=== PATIENT | female | born 1990 ===

== ENCOUNTER 2018-08-14 20:38 | Emergency (ER) | payer SELFPAY ==
[2018-08-14] MEDS ORDERED: Sodium Chloride 0.9% 1,000 ML IV STA (22:21)
[2018-08-14 23:01] LABS: BASO # 0.3 K/uL (0.0-0.2); BASO % 1.5 % (0.0-2.0); EOS % 0.2 % (0.0-4.0); HEMOGLOBIN 14.3 g/dL (12.0-16.0); LYMPH # 3.1 K/uL (1.0-4.3); LYMPH % 15.9 % (20.0-40.0); MEAN CELL VOLUME 92.2 fl (81.0-99.0); MEAN CORPUSCULAR HEMOGLOBIN 31.4 pg (27.0-31.0); MEAN CORPUSCULAR HGB CONC 34.1 g/dL (33.0-37.0); MEAN PLATELET VOLUME 7.4 fl (7.2-11.7); MONO # 1.1 K/uL (0.0-0.8); MONO % 5.8 % (0.0-10.0); NEUT # 14.7 K/uL (1.8-7.0); NEUT % 76.6 % (50.0-75.0); RBC 4.55 Mil/uL (3.80-5.20); RED CELL DISTRIBUTION WIDTH 13.5 % (11.5-14.5); WHITE BLOOD COUNT 19.2 K/uL (4.8-10.8)
[2018-08-14 23:09] LABS: SQUAMOUS EPITHIAL 6 /hpf (0-5); URINE BILIRUBIN NEGATIVE (NEGATIVE); URINE BLOOD SMALL (NEGATIVE); URINE CLARITY SLIGHTY-CLOUDY (Clear); URINE COLOR YELLOW (YELLOW); URINE GLUCOSE (UA) NEG (Normal); URINE LEUKOCYTE ESTERASE TRACE Leu/uL (Negative); URINE PROTEIN NEGATIVE (NEGATIVE); URINE UROBILINOGEN 0.2-1.0 mg/dL (0.2-1.0)
[2018-08-14 23:12] LABS: ALB/GLOB RATIO 1.1 (1.0-2.1); ALBUMIN 4.4 g/dL (3.5-5.0); ALT/SGPT 49 U/L (9-52); AST/SGOT 30 U/L (14-36); BLOOD UREA NITROGEN 8 mg/dl (7-17); CALCIUM 9.7 mg/dL (8.4-10.2); GFR NON-AFRICAN AMERICAN > 60; LIPASE 42 U/L (23-300)
--- NOTE | 2018-08-15 01:02 | ED PDOC ---
HPI: Abdomen Time Seen by Provider: 08/14/18 22:12 Chief Complaint (Nursing): Abdominal Pain Chief Complaint (Provider): Abdominal Pain History Per: Patient History/Exam Limitations: no limitations Onset/Duration Of Symptoms: Days (x2) Location Of Pain/Discomfort: LLQ Associated Symptoms: Nausea. denies: Fever, Vomiting, Urinary Symptoms Additional Complaint(s): 37 years old female presents to ER for evaluation of left lower quadrant abdomi nal pain associated with nausea for the past 2 days. Patient reports having pain with urination and bowel movement. She reports she has PCOS and used to take metformin but stopped. Patient denies fever, vomiting, melena, bloody stools or previous abdominal surgery. PMD: non provided Past Medical History Reviewed: Historical Data, Nursing Documentation, Vital Signs Vital Signs: Last Vital Signs Temp 99.4 F 08/14/18 22:03 Pulse 99 H 08/14/18 22:03 Resp 18 08/14/18 22:03 BP 149/84 08/14/18 22:03 Pulse Ox 100 08/14/18 22:03 - Medical History Other PMH: PCOS - Surgical History Surgical History: No Surg Hx - Family History Family History: States: Unknown Family Hx - Home Medications Home Medications: Ambulatory Orders Medication Instructions Recorded Nitrofurantoin Macrocrystals 100 mg PO BID #13 cap 08/15/18 [Macrobid] RX: Naproxen [Naprosyn] 500 mg PO BID PRN #10 tab 08/15/18 - Allergies Allergies/Adverse Reactions: Allergies Allergy/AdvReac Type Severity Reaction Status Date / Time No Known Allergies Allergy Verified 08/14/18 22:03 Review of Systems ROS Statement: Except As Marked, All Systems Reviewed And Found Negative Constitutional: Negative for: Fever Gastrointestinal: Positive for: Nausea, Abdominal Pain (LLQ). Negative for: Vomiting, Melena, Hematochezia Physical Exam - Reviewed Nursing Documentation Reviewed: Yes Vital Signs Reviewed: Yes - Physical Exam Appears: Positive for: Non-toxic, No Acute Distress Head Exam: Positive for: ATRAUMATIC, NORMOCEPHALIC Skin: Positive for: Normal Color, Warm, Dry Neck: Positive for: Normal, Painless ROM, Supple Cardiovascular/Chest: Positive for: Regular Rate, Rhythm. Negative for: Murmur Respiratory: Positive for: Normal Breath Sounds. Negative for: Wheezing Gastrointestinal/Abdominal: Positive for: Tenderness (Left sided pelvic) Back: Positive for: Normal Inspection. Negative for: L CVA Tenderness, R CVA Tenderness Extremity: Positive for: Normal ROM. Negative for: Tenderness, Deformity Neurologic/Psych: Positive for: Alert, Oriented (x3) - Laboratory Results Result Diagrams: 08/14/18 22:56 08/14/18 22:56 - ECG O2 Sat by Pulse Oximetry: 100 (RA) Pulse Ox Interpretation: Normal Medical Decision Making Medical Decision Making: Time: 2219 Initial Plan: --VBG Shock --CT Abdomen & Pevis --CMP --Lipase --CBC --NaCl 1,000 ml IV --Toradol 30 mg IVP --Zofran 4 mg IV --Blood culture --Urinalysis --Urine culture --Transvaginal US 1141 Transvaginal US Findings: The uterus measures 7.2 x 2.4 x 4.0 cm. The endometrium measures 0.7 cm in thickness. The right ovary measures 4.1 x 1.9 x 3.1 cm.. Left ovary measures 4.3 x 2.0 with 3.9 cm. Arterial Doppler signals were identified originating from both ovaries. There is no free pelvic fluid demonstrated. Impression: Unremarkable study. 0000 On re-eval, pt. reports good relief of pain. WBC elevated. CT abd/pelvis w/ IV contrast, VBG, blood culture, urine culture ordered. 0249 CT abdomen/pelvis findings: COMMENTS: Uncomplicated colonic diverticulosis. Mild bilateral changes of pelvic congestion syndrome. The liver is mildly enlarged with decreased attenuation without mass or defect. There is no intra or extrahepatic biliary ductal dilatation. The spleen is normal. The gallbladder is within normal limits. The pancreas is of normal contour and attenuation characteristics. There is no evidence of adrenal mass. Both kidneys demonstrate prompt and equal nephrograms. The kidneys are normal in size, shape and configuration. There is no evidence of renal or ureteral mass. No renal or ureteral calculi are identified. There is no hydroureter or hydronephrosis. No evidence for appendicitis. There is no bowel wall thickening. No evidence for small or large bowel obstruction. There is no evidence of abdominal ascites or lymphadenopathy. There is no evidence of intrinsic or extrinsic bladder mass. There is no pelvic ascites or lymphadenopathy. Images of the lung bases show no evidence of pleural or parenchymal mass. There are no pleural effusions. The bony structures are free of lytic or blastic lesions. IMPRESSION: No evidence of acute abdominal or pelvic pathology. On final re-evaluation, pt. states pain has not returned. Informed of results. Due to elevated WBC and trace leuks in urine pt. will be treated for UTI. Macrobid 100mg PO ordered. Scribe Attestation: Documented by Delicia Valiente, acting as a scribe for ORIANA Santiago. Provider Scribe Attestation: All medical record entries made by the Scribe were at my direction and personally dictated by me. I have reviewed the chart and agree that the record accurately reflects my personal performance of the history, physical exam, medical decision making, and the department course for this patient. I have also personally directed, reviewed, and agree with the discharge instructions and disposition. Disposition - Clinical Impression Clinical Impression: Leukocytosis, UTI (urinary tract infection), Abdominal pain - Patient ED Disposition Is Patient to be Admitted: No - Disposition Referrals: [facility]ones [Outside] Disposition: Routine/Home Disposition Time: 03:38 Condition: IMPROVED Additional Instructions: FOLLOW UP WITH YOUR DOCTOR FOR FURTHER EVALUATION RETURN TO ED IMMEDIATELY IF SYMPTOMS WORSEN KANA TYSON, thank you for letting us take care of you today. Your provider was Rhianna Escamilla MD and you were treated for ABD PAIN. The emergency medical care you received today was directed at your acute symptoms. If you were prescribed any medication, please fill it and take as directed. It may take several days for your symptoms to resolve. Return to the Emergency Department if your symptoms worsen, do not improve, or if you have any other problems. Please contact your doctor or call one of the physicians/clinics you have been referred to that are listed on the Patient Visit Information form that is included in your discharge packet. Bring any paperwork you were given at discharge with you along with any medications you are taking to your follow up v isit. Our treatment cannot replace ongoing medical care by a primary care provider outside of the emergency department. Thank you for allowing the [facility] team to be part of your care today. If you had an X-Ray or CT scan: A Radiologist will review the ED reading if any change in treatment is needed we will contact you. If you had a blood, urine, or wound culture: It will take several days for the results, if any change in treatment is needed we will contact you. If you had an STI test: It will take 48 hours for the results. Please call after 1 week if you have not heard back. Prescriptions: RX: Naproxen [Naprosyn] 500 mg PO BID PRN #10 tab PRN Reason: Pain Nitrofurantoin Macrocrystals [Macrobid] 100 mg PO BID #13 cap Instructions: Urinary Tract Infection, Adult (DC), White Blood Cell Count Differential Test Forms: [employer] (Vincentian) Print Language: MONGOLIAN
[2018-08-15] MEDS ORDERED: Iohexol 300 100 ML IJ ONE (01:14)
[2018-08-15] MEDS ORDERED: Sodium Chloride 0.9% 50 ML IV ONE (01:15)
[2018-08-15 01:47] LABS: VENOUS BLOOD GAS BASE EXCESS 0.3 mmol/L (0.0-2.0); VENOUS BLOOD GAS PCO2 38 mmHg (40-60); VENOUS BLOOD GAS PO2 66 mm/Hg (30-55); VENOUS BLOOD PH 7.42 (7.32-7.43)
[2018-08-15 04:08] VITALS: BP 132/86; PULSE 86; RESP 16; TEMP 97.9
[2018-08-15 06:03] VITALS: O2SAT 100
--- NOTE | 2018-08-15 07:26 | CT ---
Date of service: 08/15/2018 PROCEDURE: CT Abdomen and Pelvis with and without intravenous contrast HISTORY: LLQ abd pain COMPARISON: None. TECHNIQUE: Axial images of the abdomen were obtained in the pre contrast, portal venous and delayed phases of enhancement. Coronal and sagittal reformats were generated. Contrast dose: Radiation dose: Total exam DLP = 746.92 mGy-cm. This CT exam was performed using one or more of the following dose reduction techniques: Automated exposure control, adjustment of the mA and/or kV according to patient size, and/or use of iterative reconstruction technique. FINDINGS: LOWER THORAX: Unremarkable. LIVER: Fatty liver. GALLBLADDER AND BILE DUCTS: Unremarkable. PANCREAS: Unremarkable. No gross lesion or ductal dilatation. SPLEEN: Unremarkable. ADRENALS: Unremarkable. No mass. KIDNEYS AND URETERS: Unremarkable. No hydronephrosis. No solid mass. VASCULATURE: Unremarkable. No aortic aneurysm. No aortic atherosclerotic calcification or mural plaque present. BOWEL: Unremarkable. No obstruction. No gross mural thickening. APPENDIX: Normal appendix. PERITONEUM: Unremarkable. No free fluid. No free air. LYMPH NODES: Unremarkable. No enlarged lymph nodes. BLADDER: Unremarkable. REPRODUCTIVE: Unremarkable. BONES: No acute fracture. OTHER FINDINGS: None. IMPRESSION: Fatty liver.
--- NOTE | 2018-08-15 07:39 | US ---
Date of service: 08/14/2018 PROCEDURE: HISTORY: L sided pelvic pain COMPARISON: TECHNIQUE: FINDINGS: The uterus is normal in size. The endometrium is normal thickness. The ovaries have a normal sonographic appearance. The right ovary measures 4.1 x 1.9 x 3.1 centimeters. Left ovary measures 4.3 x 2.0 x 3.9 centimeters. There is no free fluid the pelvis. IMPRESSION: Normal scan.
== END 2018-08-15 03:55 | disposition home or self-care (01) ==
LOC: H.ER 20:38
DX: N39.0 Urinary tract infection, site not specified (principal); D72.829 Elevated white blood cell count, unspecified; R10.32 Left lower quadrant pain; E28.2 Polycystic ovarian syndrome
CPT/HCPCS: 74177; 76830; 80053; 81003; 81025; 82803; 83690; 85025; 87040; 87086; 96361; 96374; 96375; 99284; J1885; J2405; J7030; Q9967

== ENCOUNTER 2018-11-17 00:22 | Emergency (ER) | payer MEDICAID ==
--- NOTE | 2018-11-17 01:00 | ED PDOC ---
Lower Extremity Pain/Injury Time Seen by Provider: 11/17/18 00:32 Chief Complaint (Nursing): Lower Extremity Problem/Injury Chief Complaint (Provider): right ankle injury History Per: Patient History/Exam Limitations: no limitations Onset/Duration Of Symptoms: Hrs (3) Current Symptoms Are (Timing): Still Present Additional Complaint(s): 28 y/o female presents for evaluation of right ankle pain x 3 hours. Patient states she accidentally skipped the last step while going down, and twisted right ankle causing her to fall to ground. Denies numbness/weakness right lower extremity, limitation of movement. No medication taken for relief thus far Past Medical History Reviewed: Historical Data, Nursing Documentation, Vital Signs Vital Signs: Last Vital Signs Temp 98.8 F 11/17/18 00:25 Pulse 94 H 11/17/18 00:25 Resp 16 11/17/18 00:25 BP 142/98 H 11/17/18 00:25 Pulse Ox 100 11/17/18 00:25 - Medical History PMH: No Chronic Diseases - Surgical History Surgical History: No Surg Hx - Family History Family History: States: Unknown Family Hx - Living Arrangements Living Arrangements: With Family - Home Medications Home Medications: Ambulatory Orders Medication Instructions Recorded Naproxen [Naprosyn] 500 mg PO BID PRN #10 tab 08/15/18 Nitrofurantoin Macrocrystals 100 mg PO BID #13 cap 08/15/18 [Macrobid] Naproxen [Naprosyn] 500 mg PO Q12 PRN #20 tablet 11/17/18 - Allergies Allergies/Adverse Reactions: Allergies Allergy/AdvReac Type Severity Reaction Status Date / Time No Known Allergies Allergy Verified 08/14/18 22:03 Review of Systems ROS Statement: Except As Marked, All Systems Reviewed And Found Negative Musculoskeletal: Positive for: Foot Pain (right ankle) Physical Exam - Reviewed Nursing Documentation Reviewed: Yes Vital Signs Reviewed: Yes - Physical Exam Appears: Positive for: Well, Non-toxic, Uncomfortable Head Exam: Positive for: ATRAUMATIC, NORMAL INSPECTION, NORMOCEPHALIC Pulses-Dorsalis Pedis (L): 2+ Pulses-Dorsalis Pedis (R): 2+ Pulses-Post. Tibialis (L): 2+ Pulses-Post. Tibialis (R): 2+ Extremity: Positive for: Capillary Refill (<3 sec b/l LE), Swelling (right medial and lateral malleolus with diffuse tenderness to palpate). Negative for: Pedal Edema, Calf Tenderness, Deformity Neurologic/Psych: Positive for: Alert, Oriented (x3) - ECG O2 Sat by Pulse Oximetry: 100 - Other Rad xray right ankle X-Ray: Viewed By Me X-Ray Interpretation: no acute findings - Progress ED Course And Treament: -upreg -right ankle xray -PO ibuprofen -PO tramadol Patient educated on findings, placed in immobilizer. Crutches given with demonstration on use Advised RICE. Rx naproxen provided Follow up podiatry Return precautions given Disposition - Clinical Impression Clinical Impression: Ankle sprain - Patient ED Disposition Is Patient to be Admitted: No Counseled Patient/Family Regarding: Studies Performed, Diagnosis, Need For Followup, Rx Given - Disposition Referrals: Podiatry Clinic [Outside] Disposition: Routine/Home Disposition Time: 02:18 Condition: IMPROVED Prescriptions: Naproxen [Naprosyn] 500 mg PO Q12 PRN #20 tablet PRN Reason: Pain, Moderate (4-7) Instructions: Ankle Sprain Forms: [facility] (Latvian), [facility] ED School/Work Excuse
[2018-11-17 05:57] VITALS: BP 132/70; PULSE 77; RESP 18; TEMP 97.7; O2SAT 99
--- NOTE | 2018-11-17 08:49 | RAD ---
Date of service: 11/17/2018 PROCEDURE: Right Ankle Radiographs. HISTORY: fall, pain/swelling COMPARISON: None available. FINDINGS: BONES: No acute fracture or destructive bony lesion identified. JOINTS: Normal. No osteoarthritis. Ankle mortise maintained. Talar dome intact SOFT TISSUES: Mild soft tissue edema is seen anterior to the right ankle as well as laterally. OTHER FINDINGS: None. IMPRESSION: No acute fracture or destructive bony lesion identified. No subluxation or dislocation. Soft tissue edema appears mild as discussed above.
== END 2018-11-17 02:30 | disposition home or self-care (01) ==
LOC: H.ER 00:22
DX: S93.401A Sprain of unspecified ligament of right ankle, initial encounter (principal); W10.9XXA Fall (on) (from) unspecified stairs and steps, initial encounter